=== PATIENT | male | born 1980 | race Asian ===

== ENCOUNTER 2024-12-06 23:04 | Emergency (ER) | payer MEDICAID ==
[~2024-12-06] VITALS: Ht 165.1 cm; Wt 107.8 kg
[~2024-12-06 23:04] MED LIST: ALLO300T2 PO; ATOR40TA52 PO; GABA-1250 PO; METF-370 PO
--- NOTE | 2024-12-06 23:45 | ED.PDOC ---
HPI (NEURO) HPI Comments 44-year-old male who came to ER for right-sided weakness. Patient has history of diabetes and dyslipidemia. States for the past 24 hours, he has been experiencing right-sided facial weakness, right facial asymmetry. Denies any headaches, dizziness, blurring of vision, or any unilateral weakness or numbness of extremities Chief Complaint: Right Sided Weakness Time Seen by MD: 23:44 Primary Care Provider: NONE Reviewed Notes: Nurses Notes Information Source: Patient, Spouse Mode of Arrival: Ambulatory Severity: Moderate Dizziness/Weakness Severity: Does not affect activitie Headache Severity: Moderate Timing: Hours Duration: Since onset Weakness Location: Facial (Right) Seizure Location: Other (None) Associated Signs and Symptoms: Weakness (Right facial) Past Medical History PAST MEDICAL HISTORY: DM, Gout, High Lipids Surgical History: Denies all surgeries Family History Family History: No family hx of HTN Social History Smoker: Non-Smoker Alcohol: Rarely Drugs: Denies Drug Use Lives In: Home Constitutional: denies: chills, diaphoresis, fatigue, fever, malaise, sweats, weakness, others EENTM: denies: blurred vision, double vision, ear bleeding, ear discharge, ear drainage, ear pain, ear ringing, eye pain, eye redness, hearing loss, mouth pain, mouth swelling, nasal discharge, nose bleeding, nose congestion, nose pain, photophobia, tearing, throat pain, throat swelling, voice changes, others Respiratory: denies: cough, hemoptysis, orthopnea, SOB at rest, shortness of breath, SOB with excertion, stridor, wheezing, others Cardiovascular: denies: chest pain, dizzy spells, diaphoresis, Dyspnea on exertion, edema, irregular heart beat, left arm pain, lightheadedness, palpitations, PND, syncope, others Gastrointestinal: denies: abdomen distended, abdominal pain, blood streaked bowels, constipated, diarrhea, dysphagia, difficulty swallowing, hematemesis, m ana, nausea, poor appetite, poor fluid intake, rectal bleeding, rectal pain, vomiting, others Genitourinary: denies: burning, dysuria, flank pain, frequency, hematuria, incontinence, penile discharge, penile sore, pain, testicle pain, testicle swelling, urgency, others Neurological: reports: right sided weakness (Facial), speech problems (Slurred); denies: dizziness, fainting, headache, left sided numbness, left sided weakness, numbness, paresthesia, pre-existing deficit, right sided numbness, seizure, tingling, tremors, weakness, others Musculoskeletal: denies: back pain, gout, joint pain, joint swelling, muscle pain, muscle stiffness, neck pain, others Integumetry: denies: bruises, change in color, change in hair/nails, dryness, laceration, lesions, lumps, rash, wounds, others Allergic/Immunocompromised: denies: Difficulty Healing, Frequent Infections, Hives, Itching, others Hematologic/Lymphatic: denies: anemia, blood clots, easy bleeding, easy bruising, swollen glands, others Endocrine: denies: excessive hunger, excessive sweating, excessive thirst, excessive urination, flushing, intolerance to cold, intolerance to heat, unexplained weight gain, unexplained weight loss, others Psychiatric: denies: anxiety, bipolar disorder, depression, hopeless, panic disorder, schizophrenia, sleepless, suicidal, others Physical Exam General Appearance: No Apparent Distress, Normal HEENT: Normal ENT Inspection, Pharynx Normal, TMs Normal Neck: Full Range of Motion, Non-Tender, Normal, Normal Inspection Respiratory: Chest Non-Tender, Lungs Clear, No Accessory Muscle Use, No Respiratory Distress, Normal Breath Sounds Cardiovascular: No Edema, No JVD, No Murmur, No Gallop, Normal Peripheral Pu lses, Regular Rate/Rhythm Breast Exam: Deferred Gastrointestinal: No Organomegaly, Non Tender, No Pulsatile Mass, Normal Bowel Sounds, Soft Genitalia: Deferred Pelvic: Deferred Rectal: Deferred Extremities: No calf tenderness, Normal capillary refill, Normal inspection, Normal range of motion, Non-tender, No pedal edema Musculoskeletal : Apperance: Normal Neurologic: Alert, automatic blocker II-XII nml as Tested, No Motor Deficits, Normal Affect, Normal Mood, No Sensory Deficits Cerebellar Function: Normal Reflexes: Normal Skin: Dry, Normal Color, Warm Lymphatic: No Adenopathy Was a procedure done? Was a procedure done?: No Differential Diagnosis (SZ) CVA: Paredes's Palsy, CVA, Hypoglycemia, Hypoxemia, TIA X-Ray, Labs, Meds, VS Vital Signs Date Time Temp Pulse Resp B/P (MAP) Pulse Ox O2 Delivery O2 Flow Rate FiO2 12/07/24 05:00 98.4 57 16 126/76 (93) 95 98.4 12/06/24 23:29 98.3 57 16 110/57 (74) 94 98.3 12/06/24 23:13 68 Lab Test 12/07/24 00:21 12/06/24 23:19 Range/Units Troponin I High Sensitivity 18 17 </=54 ng/L EXAM: CT HEAD WITHOUT CONTRAST INDICATION: right facial droop TECHNIQUE: CT of the head without intravenous contrast. Radiation Dose : 1. Head: CT Dose: CTDI volume is 67.28 mGy. Dose-length product is 1324.26 mGy*cm The dose indicators for CT are the volume Computed Tomography (CT) Dose Index (CTDIvol) and the Dose Length Product (DLP), and are measured in units of mGy and mGy-cm, respectively. These indicators are not patient dose, but values generated from the CT scanner acquisition factors. The report includes radiation exposure data for exposures received during this examination. COMPARISON: None FINDINGS: There is no evidence of acute intracranial hemorrhage, extra-axial collection, mass effect, midline shift, herniation or hydrocephalus. The ventricles, sulci and cisterns are age appropriate. The mike-white differentiation is intact. The visualized paranasal sinuses and mastoid air cells are clear. The surrounding soft tissues and osseous structures are unremarkable. IMPRESSION: 1. No acute intracranial abnormality. Time of 1ST Reevaluation: 23:41 Reevaluation 1ST: Unchanged Patient Education/Counseling: Diagnosis, Treatment Family Education/Counseling: Diagnosis, Treatment Departure 1 Departure Time of Disposition: 03:00 Impression: Primary Impression: Paredes's palsy Disposition: 01 HOME / SELF CARE / HOMELESS Condition: Stable e-Prescriptions Methylprednisolone (Medrol Dosepak) 4 Mg Morteza 4 MG PO UD for 7 Days, #21 TAB UAD Prov: DEWAYNE JAOCBSON MD 12/07/24 Acyclovir (ZOVIRAX TABLET) 400 Mg Tb 1 TAB PO QID for 10 Days, #40 TAB 3 Refills Prov: DEWAYNE JACOBSON MD 12/07/24 Discharged With: Self Critical Care Note Critical Care Time?: No Stability Stability form required: No Heart Score Heart Score: Heart Score Response (Comments) Value History N/A 0 EKG N/A 0 Age N/A 0 Risk Factors N/A 0 Troponin N/A 0 Total 0 I personally scribed for DEWAYNE JACOBSON MD ([email or web address]) on 12/06/24 at 23:45. Electronically submitted by Lele Grant ([email or web address]). I personally scribed for DEWAYNE JACOBSON MD ([email or web address]) on 12/07/24 at 00:35. Electronically submitted by Lele Grant ([email or web address]). DEWAYNE JACOBSON MD Dec 06, 2024 23:45
--- NOTE | 2024-12-07 00:13 | DVH ---
EXAM: CT HEAD WITHOUT CONTRAST INDICATION: right facial droop TECHNIQUE: CT of the head without intravenous contrast. Radiation Dose : 1. Head: CT Dose: CTDI volume is 67.28 mGy. Dose-length product is 1324.26 mGy*cm The dose indicators for CT are the volume Computed Tomography (CT) Dose Index (CTDIvol) and the Dose Length Product (DLP), and are measured in units of mGy and mGy-cm, respectively. These indicators are not patient dose, but values generated from the CT scanner acquisition factors. The report includes radiation exposure data for exposures received during this examination. COMPARISON: None FINDINGS: There is no evidence of acute intracranial hemorrhage, extra-axial collection, mass effect, midline s hift, herniation or hydrocephalus. The ventricles, sulci and cisterns are age appropriate. The mike-white differentiation is intact. The visualized paranasal sinuses and mastoid air cells are clear. The surrounding soft tissues and osseous structures are unremarkable. IMPRESSION: 1. No acute intracranial abnormality. Radiation optimization: All CT scans at this facility use at least one of these dose optimization vikash hniques: automated exposure control mA and/or kV adjustment per patient size (includes targeted exam s where dose is matched to clinical indication) or iterative reconstruction.
[2024-12-07] MEDS ORDERED: METH4PAK PO (02:20)
[2024-12-07] MEDS ORDERED: ACYC400T16 PO (02:20)
[2024-12-07 04:50] VITALS: RESP 18
[2024-12-07 05:00] VITALS: BP 126/76; PULSE 57; RESP 16; TEMP 98.4; O2SAT 95
--- NOTE | 2024-12-09 10:47 | ECG ---
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
== END 2024-12-07 05:15 | disposition home or self-care (01) ==
LOC: ER 23:04
DX: G51.0 Bell's palsy (principal); E11.9 Type 2 diabetes mellitus without complications; E78.5 Hyperlipidemia, unspecified; Z79.899 Other long term (current) drug therapy
CPT/HCPCS: 36415; 70450; 84484; 93005